=== PATIENT | female | born 1945 | race Caucasian/White ===

== ENCOUNTER 2017-12-03 14:43 | Emergency (ER) | payer BC ==
[~2017-12-03] VITALS: Ht 167.6 cm; Wt 77.7 kg
[~2017-12-03 14:43] MED LIST: OMEP20CA5 PO; TRIL150T PO
[2017-12-03 15:03] VITALS: BP 153/79; PULSE 68; RESP 16; TEMP 97.7; O2SAT 99
[2017-12-03] MEDS ORDERED: PRIL20TA2 PO (16:03)
--- NOTE | 2017-12-03 16:31 | PD ---
HPI Chief Complaint: Depression Time Seen by Provider: 15:58 Travel History International Travel<30 days: No Contact w/Intl Traveler<30days: No Traveled to known affect area: No History of Present Illness HPI 71-year-old female complains of depression. She lost her 3 months ago. A few years ago she lost her daughter. She visited her mother one week ago. Just 3 days ago she suddenly felt the terrible sense of loneliness sense of not prolonging anywhere. She denies any suicidal ideation. No homicidal ideation. No hallucination. No drug or alcohol abuse. She reports some friends in the area. Her mother lives out of state. She has no history of depression. She has never taken psychotropic drugs. She did do some reading online and discovered hypoglycemia as a potential cause of depressed mood and wonders if that may be treatable today. [facility] Past Medical History Anxiety: Yes Diabetes: No Diminished Hearing: No Gastrointestinal Disorders: Yes (GERD) GERD: Yes Glaucoma: Yes (BORDERLINE) Genitourinary: Yes (CERVICAL INTRAEPITHELIAL NEOPLASIA; PROLIFERATIVE ENDOMETRIUM) Immunizations Current: No Seizures: Yes (PETIT MAL SEIZURES) Tetanus Vaccination: Unknown ?: Not Tubal Ligation: Yes Past Surgical History Gynecologic Surgery: Yes (CONIZATION OF CERVIX; D&C; COLPOSCOPY OF CERVIX) Tonsillectomy: Yes Other Surgery: Yes (PYLONIDAL CYST REMOVED.) Social History Alcohol Use: No Tobacco Use: No Substance Use: No Allergies-Medications (Allergen,Severity, Reaction): Coded Allergies: No Known Allergies (Verified Adverse Reaction, Unknown, 12/03/17) Reported Meds & Prescriptions Reported Meds & Active Scripts Active Reported Prilosec (Omeprazole Magnesium) 20 Mg Tab 20 Mg PO DAILY Review of Systems Except as stated in HPI: all other systems reviewed are Neg General / Constitutional: No: Fever Physical Exam Narrative GENERAL: 71-year-old female pleasant well-nourished well-developed slightly tearful Vital Signs Date Time Temp Pulse Resp B/P (MAP) Pulse Ox O2 Delivery O2 Flow Rate FiO2 12/03/17 15:03 97.7 68 16 153/79 (103) 99 SKIN: Warm and dry. HEAD: Atraumatic. Normocephalic. EYES: Pupils equal and round. No scleral icterus. No injection or drainage. ENT: No nasal bleeding or discharge. Mucous membranes pink and moist. NECK: Trachea midline. No JVD. CARDIOVASCULAR: Regular rate and rhythm. RESPIRATORY: No accessory muscle use. Clear to auscultation. Breath sounds equal bilaterally. GASTROINTESTINAL: Abdomen soft, non-tender, nondistended. Hepatic and splenic margins not palpable. MUSCULOSKELETAL: Extremities without clubbing, cyanosis, or edema. No obvious deformities. NEUROLOGICAL: Awake and alert. No obvious cranial nerve deficits. Motor grossly within normal limits. Five out of 5 muscle strength in the arms and legs. Normal speech. PSYCHIATRIC: Depressed mood. Tearful. No suicidal ideation. No homicidal ideation. Data Data Last Documented VS Vital Signs Date Time Temp Pulse Resp B/P (MAP) Pulse Ox O2 Delivery O2 Flow Rate FiO2 12/03/17 15:03 97.7 68 16 153/79 (103) 99 Orders Orders Bedside Glucose ISADORA.CSUGAR (12/03/17 16:27) MDM Medical Decision Making Medical Screen Exam Complete: Yes Emergency Medical Condition: Yes Medical Record Reviewed: Yes Differential Diagnosis Depression, adjustment reaction, hypoglycemia Narrative Course There is a glucose is 85. We discussed the typical psychiatric screening and admission process. The patient would prefer to avoid the screening process and believes the admission process would be low yield. The undersigned agrees. Patient will be discharged home with planned follow-up with therapist who she has called and it anticipating a phone call back on Monday. Referral to PMD provided. Diagnosis Primary Impression: Adjustment reaction Qualified Codes: F43.20 - Adjustment disorder, unspecified Referrals: hTeron Arvizu Jr., MD call for appointment PRIMARY CARE PROVIDER Med/Other Pt SpecificInfo: No Change to Meds Disposition: DISCHARGE HOME Condition: Stable Torres Miguel MD Dec 03, 2017 16:31
== END 2017-12-03 16:38 | disposition home or self-care (01) ==
LOC: PHED 14:43
DX: F43.20 Adjustment disorder, unspecified (principal); F41.9 Anxiety disorder, unspecified; K21.9 Gastro-esophageal reflux disease without esophagitis; H40.9 Unspecified glaucoma; Z86.69 Personal history of other diseases of the nervous system and sense organs; Z79.899 Other long term (current) drug therapy
CPT/HCPCS: 99282